=== PATIENT | male | born 1975 | race Caucasian/White ===

== ENCOUNTER 2022-02-16 04:56 | Inpatient (IN) | payer BC ==
[~2022-02-16] VITALS: Ht 160 cm; Wt 45.2 kg
[2022-02-16 05:43] LABS: BASOPHILS ABSOLUTE AUTO 0.04 K/mm3 (0.00-0.23); BASOPHILS PERCENT AUTO 0 % (0-2); EOSINOPHILS PERCENT AUTO 0 % (0-6); Hematocrit 41.5 % (37.0-53.0); Hemoglobin 13.5 g/dL (13.5-17.5); IMMATURE GRAN ABSOLUTE AUTO 0.04 K/mm3 (0.00-0.10); IMMATURE GRAN PERCENT AUTO 0 % (0-1); LYMPHOCYTES ABSOLUTE AUTO 0.45 K/mm3 (0.84-5.20); LYMPHOCYTES PERCENT AUTO 3 % (21-46); MONOCYTES ABSOLUTE AUTO 1.98 K/mm3 (0.16-1.47); MONOCYTES PERCENT AUTO 14 % (4-13); Mean Corpuscular HGB 30.4 pg (26.0-34.0); Mean Corpuscular HGB Conc 32.5 g/dL (31.5-36.5); Mean Corpuscular Volume 94 fL (80-100); Mean Platelet Volume 9.7 fL (9.1-12.4); NEUTROPHILS ABSOLUTE AUTO 11.92 K/mm3 (1.96-9.15); NEUTROPHILS PERCENT AUTO 83 % (41-73); Platelet Count 181 K/mm3 (150-400); RDW Coefficient Variation 12.8 % (11.7-14.2); RDW Standard Deviation 44.3 fL (35.1-46.3); Red Blood Cell Count 4.44 M/mm3 (4.30-5.90); White Blood Cell Count 14.43 K/mm3 (4.00-11.30)
[2022-02-16 05:50] LABS: Base Excess Venous 3.4 mmol/L; Bicarbonate Venous 26.3 mmol/L (24.0-30.0); PCO2 Venous 50.4 mmHg (38-42); pH Blood Venous 7.37 (7.34-7.37)
[2022-02-16 06:02] LABS: Albumin/Globulin Ratio 1.1 (0.8-1.8); Bilirubin, Total 0.7 mg/dL (0.1-1.0); Bun/Creatinine Ratio 19.1 (12.0-20.0); Calcium, Blood 9.1 mg/dL (8.5-10.1); Creatinine, Blood 1.31 mg/dL (0.60-1.20); Globulin, Blood 3.6 g/dL (2.2-4.0); Potassium, Blood 4.2 mmol/L (3.5-5.5); Total Protein, Blood 7.6 g/dL (6.4-8.2)
[2022-02-16 06:13] LABS: Influenza A, PCR NEGATIVE (NEGATIVE); Influenza B, PCR NEGATIVE (NEGATIVE); SARS-Cov-2 (COVID-19) PCR, MMC NEGATIVE (NEGATIVE)
[2022-02-16 06:27] LABS: Resp Syncytial Virus, PCR POSITIVE (NEGATIVE)
--- NOTE | 2022-02-16 11:16 | NUR ---
[facility]SCIA[facility] CONTACT CRITICAL LACTIC OF 5.3. DR. DIEHL NOTIFIED. NEW ORDERS FOR STAT RENAL PANEL.
[2022-02-16 11:44] LABS: Albumin, Blood 3.6 g/dL (3.4-5.0); Anion Gap 8 mmol/L (6-16); Blood Urea Nitrogen 24 mg/dL (8-24); Bun/Creatinine Ratio 19.8 (12.0-20.0); CO2, Blood 26 mmol/L (21-32); Calcium, Blood 8.2 mg/dL (8.5-10.1); Chloride, Blood 107 mmol/L (98-108); Creatinine, Blood 1.21 mg/dL (0.60-1.20); Glomerular Filtration Rate 74 (60-); Glucose, Blood 222 mg/dL (70-99); Phosphorus, Blood 1.4 mg/dL (2.5-4.9); Potassium, Blood 3.9 mmol/L (3.5-5.5); Sodium, Blood 141 mmol/L (136-145)
[2022-02-16] MEDS ORDERED: Prinivil10 MG PO (15:10)
--- NOTE | 2022-02-16 18:12 | NUR ---
pt arrived to room 339 via gurney from ED, report from Jacob RN, pt able to stand and ambulate to the bathroom indep and denies need for a walker, a/ox3, pleasant and coopertive with care, follows commands well, lungs are course t/o, states he's not as sob as when he came in, on r/a, hrr, distant sounds, no edema noted, ppp+2, cap refill <3 sec, piv to lac 20 G, btx4, abd round soft nontender, voids without diff, skin c/w/d, maew, rajni, call light in reach.
--- NOTE | 2022-02-16 18:38 | NUR ---
Dr. Shea notified of recent lactic of 2.8
[2022-02-17 06:39] LABS: BASOPHILS ABSOLUTE AUTO 0.03 K/mm3 (0.00-0.23); BASOPHILS PERCENT AUTO 0 % (0-2); EOSINOPHILS ABSOLUTE AUTO 0.01 K/mm3 (0.00-0.68); EOSINOPHILS PERCENT AUTO 0 % (0-6); Hematocrit 35.1 % (37.0-53.0); Hemoglobin 11.5 g/dL (13.5-17.5); IMMATURE GRAN ABSOLUTE AUTO 0.04 K/mm3 (0.00-0.10); IMMATURE GRAN PERCENT AUTO 0 % (0-1); LYMPHOCYTES ABSOLUTE AUTO 1.03 K/mm3 (0.84-5.20); LYMPHOCYTES PERCENT AUTO 8 % (21-46); MONOCYTES ABSOLUTE AUTO 0.73 K/mm3 (0.16-1.47); MONOCYTES PERCENT AUTO 5 % (4-13); Mean Corpuscular HGB 30.5 pg (26.0-34.0); Mean Corpuscular HGB Conc 32.8 g/dL (31.5-36.5); Mean Corpuscular Volume 93 fL (80-100); Mean Platelet Volume 9.4 fL (9.1-12.4); NEUTROPHILS ABSOLUTE AUTO 11.98 K/mm3 (1.96-9.15); NEUTROPHILS PERCENT AUTO 87 % (41-73); Platelet Count 146 K/mm3 (150-400); RDW Coefficient Variation 13.2 % (11.7-14.2); RDW Standard Deviation 45.3 fL (35.1-46.3); Red Blood Cell Count 3.77 M/mm3 (4.30-5.90); White Blood Cell Count 13.82 K/mm3 (4.00-11.30)
[2022-02-17 07:36] LABS: Albumin, Blood 3.2 g/dL (3.4-5.0); Anion Gap 4 mmol/L (6-16); Blood Urea Nitrogen 27 mg/dL (8-24); Bun/Creatinine Ratio 21.8 (12.0-20.0); CO2, Blood 27 mmol/L (21-32); Calcium, Blood 8.6 mg/dL (8.5-10.1); Chloride, Blood 106 mmol/L (98-108); Creatinine, Blood 1.24 mg/dL (0.60-1.20); Glomerular Filtration Rate 72 (60-); Glucose, Blood 151 mg/dL (70-99); Magnesium, Blood 1.8 mg/dL (1.6-2.4); Phosphorus, Blood 1.6 mg/dL (2.5-4.9); Potassium, Blood 4.4 mmol/L (3.5-5.5); Sodium, Blood 137 mmol/L (136-145)
--- NOTE | 2022-02-17 08:00 | NUR ---
Pt sitting up on side of the bed, a/ox3, pleasant and coopertive with care, follows commands well, denies pain, states he's feeling better, lungs are course, dim t/o, on r/a, no cough noted, hrr, no edema noted, ppp+2, cap refill <3 sec, vs stable, afebrile, iv site is clear and patent, btx4, abd flat soft nontender, voids without diff, skin c/w/d, maew, rajni, call light in reach.
--- NOTE | 2022-02-17 08:00 | NUR ---
pt sits on the side of the bed most of the day, states he's feeling better than when he came in, a/ox3, pleasant and coopertive with care, follows commands well, lungs are a bit course t/o, resp even and unlabored, sats are above 90%, hrr, no edmema noted, ppp+2, cap refill <3sec, vs stable, afebrile, iv site is clear and patent, btx4, abd flat soft nontender, voids without diff, skin c/w/d, maew, a bit weak and shakey when he gets up, sba to bathroom, rajni, call light in reach.
--- NOTE | 2022-02-17 08:39 | NUR ---
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 SLEPT WELL, VERY MINIMAL COUGHING. HE STILL SOUNDS VERY COARSE IN ALL RAZO. CALLS APPROPRIATELY FOR ASSISTANCE. NO COMPLAINTS OF PAIN OR DISCOMFORT.
--- NOTE | 2022-02-17 18:34 | NUR ---
pt has a temp this evening, tylenol administered, states he hurts all over lesa in his low back, cool wash rag given along with ice pack, will monitor temp, asked him to give pain meds a little time to work, call light in reach.
--- NOTE | 2022-02-18 05:10 | NUR ---
SHIFT SUMMARY: Pt A/Ox4 and call light appropriate. Pt had no acute changes and slept well in between care. He denied nausea, SOB, dizziness. He did have some c/o pain- recieved PRN tylenol. he is able to ambulate independant in his room. He remains on RA and his saturations remain >92%. Tele is on and no tele calls overnight.
--- NOTE | 2022-02-18 18:04 | NUR ---
SHIFT SUMMARY NO ACUTE CHANGES DURING SHIFT. PT ALERT AND ORIENTED, CALLS APPROPRIATELY. PT REMAINS ON RA, SPO2 > 92%. NO C/O PAIN. CONTINUED IV ABX. TMAX OF 100.4 TODAY. PT SBA IN ROOM. WILL CONTINUE TO MONITOR. CALL LIGHT WITHIN REACH.
--- NOTE | 2022-02-18 19:36 | NUR ---
AWAKE. DENIES PAIN AND LOSS OF FEELING. NOTE SOME WHEEZING AND DIMINISHED LUNG SOUNDS PER AUSCULTATION. TEMP 100.4, OTHERWISE VSS. UP AD SHANA. AFFECT CHEERFUL. CALL LIGHT IN REACH. ISOLATION PRECAUTIONS MAINTAINED. WILL CONTINUE TO MONITOR.
--- NOTE | 2022-02-19 06:07 | NUR ---
SENIOR NETWORK ENGINEER SUMMARY REMAINS ON ISOLATION PRECAUTIONS FOR RSV. UP AD SHANA IN ROOM. LUNG SOUNDS DIMINISHED, WITH SOME EXP WHEEZE PER AUSCULTATION. VS WNL, OTHER THAN ELEVATED TEMP. WAS 100.7 AT SHIFT COMMENCE, RECEIVED TYLENOL FOR FEVER AND BACK PAIN. MED EFFECTIVE, BROUGHT TEMP DOWN TO 100.1. HAS BEEN RESTING QUIETLY WITH FEW INTERRUPTIONS MOST OF THE SHIFT. AFFECT CHEERFUL WHEN INTERACTING WITH STAFF. CALL LIGHT IN REACH. MAURYON ISRAEL FOR COUGH. EFFECTIVE.
[2022-02-19 06:14] LABS: BASOPHILS ABSOLUTE AUTO 0.05 K/mm3 (0.00-0.23); BASOPHILS PERCENT AUTO 1 % (0-2); EOSINOPHILS ABSOLUTE AUTO 0.02 K/mm3 (0.00-0.68); EOSINOPHILS PERCENT AUTO 0 % (0-6); Hematocrit 33.4 % (37.0-53.0); IMMATURE GRAN ABSOLUTE AUTO 0.05 K/mm3 (0.00-0.10); IMMATURE GRAN PERCENT AUTO 1 % (0-1); LYMPHOCYTES ABSOLUTE AUTO 1.27 K/mm3 (0.84-5.20); LYMPHOCYTES PERCENT AUTO 13 % (21-46); MONOCYTES ABSOLUTE AUTO 1.06 K/mm3 (0.16-1.47); MONOCYTES PERCENT AUTO 11 % (4-13); Mean Corpuscular HGB 30.5 pg (26.0-34.0); Mean Corpuscular HGB Conc 32.9 g/dL (31.5-36.5); Mean Corpuscular Volume 93 fL (80-100); Mean Platelet Volume 10.6 fL (9.1-12.4); NEUTROPHILS ABSOLUTE AUTO 7.43 K/mm3 (1.96-9.15); NEUTROPHILS PERCENT AUTO 75 % (41-73); Platelet Count 168 K/mm3 (150-400); RDW Coefficient Variation 12.9 % (11.7-14.2); RDW Standard Deviation 44.2 fL (35.1-46.3); Red Blood Cell Count 3.61 M/mm3 (4.30-5.90); White Blood Cell Count 9.88 K/mm3 (4.00-11.30)
[2022-02-19 06:55] LABS: Albumin, Blood 2.8 g/dL (3.4-5.0); Anion Gap 3 mmol/L (6-16); Blood Urea Nitrogen 14 mg/dL (8-24); Bun/Creatinine Ratio 12.7 (12.0-20.0); CO2, Blood 31 mmol/L (21-32); Chloride, Blood 104 mmol/L (98-108); Glomerular Filtration Rate 83 (60-); Glucose, Blood 110 mg/dL (70-99); Magnesium, Blood 2.2 mg/dL (1.6-2.4); Potassium, Blood 4.8 mmol/L (3.5-5.5); Sodium, Blood 138 mmol/L (136-145)
[2022-02-19] MEDS ORDERED: Acetaminophen650 M1 PO (11:37)
[2022-02-19] MEDS ORDERED: BENZ100A PO (11:38)
[2022-02-19] MEDS ORDERED: AMOCLA875 PO (11:38)
--- NOTE | 2022-02-19 12:32 | NUR ---
DISCHARGE SUMMARY PT AxOx4. PLEASANT AND COOPERATIVE WITH CARE. PT IS DISCHARGING HOME TODAY WITH HIS MOTHER. MOTHER IN ROOM THIS AM. PT DENIES PAIN OR SOB. PT HAS HACKY CONSISTED COUGH. MEDICATED PER EMAR WITH REPORTED RELIEF. PT AND HIS MOTHER WERE GIVEN EXTENSIVE PATIENT EDUCATION ON RSV, AND PRECAUTIONS. OTHER DISCHARGE INFO GIVEN INCLUDING DC MEDICATION LIST AND FOLLOW UP APPOINTMENT WITH PCP. PT WAS INSTRUCTED TO SEE OUTPATIENT DR TO DISCUSS LENGTH OF NEED TO BE OFF WORK. PT VERBALIZES UNDERSTANDING AND DENIES FURTHER QUESTIONS. PT WAS SAFELY ESCORTED OUT VIA WC WITH MOTHER AND INSTRUMENTATION TECH.
== END 2022-02-19 13:16 | disposition home or self-care (01) | DRG 871 ==
LOC: ER 04:56 → ERHOLD 04:57 → MEDS 04:57
PROVIDERS: Student in an Organized Health Care Education/Training Program; ADMIT Family Medicine
DX: A41.89 Other specified sepsis (principal); J12.1 Respiratory syncytial virus pneumonia; J96.01 Acute respiratory failure with hypoxia; J45.901 Unspecified asthma with (acute) exacerbation; N17.9 Acute kidney failure, unspecified; E87.20 Acidosis, unspecified; Z20.822 Contact with and (suspected) exposure to COVID-19; I10 Essential (primary) hypertension
CPT/HCPCS: 0241U; 36415; 51798; 71045; 76770; 80053; 80069; 82803; 83605; 83735; 83880; 84145; 84484; 85025; 87040; 93005; 93010; 94640; 94644; 94664; 96365; 96367; 96372; 96375; 96376; 99285-25; A9270; G0378; J0456; J0696; J1644; J1885; J7030; J7050; J7060; J7120

== ENCOUNTER 2022-05-01 06:29 | Day surgery (SDC) | payer BC ==
[~2022-05-01] VITALS: Ht 160 cm; Wt 46.1 kg
[~2022-05-01 06:29] MED LIST: AMOCLA875 PO; Acetaminophen650 M1 PO; BENZ100A PO; Prinivil10 MG PO
--- NOTE | 2022-05-01 07:42 | NUR ---
Ambulatory in Day Surgery. History, Chart, Medications and Allergies reviewed before start of procedure. Patient confirms NPO status and agrees with scheduled surgery. Patient States Post-Procedure ride home has been arranged WITH FREDRICK CABRERA.
--- NOTE | 2022-05-01 08:15 | NUR ---
05/01/22 0815 Sharon Myrick HISTORY, CHART, MEDICATIONS AND ALLERGIES REVIEWED BEFORE START OF PROCEDURE. PATIENT CONFIRMS NPO STATUS AND AGREES WITH SCHEDULED PROCEDURE. 3-LEAD EKG REVIEWED WITH PHYSICIAN PRIOR TO START OF PROCEDURE. MONITOR INTACT WITH CONTINUOUS PULSE OXIMETRY,CAPNOGRAPHY, 3-LEAD EKG, INTERMITTENT BP. SUPPLEMENTAL O2 TO BE TITRATED THROUGHOUT PROCEDURE TO MAINTAIN O2 SATURATION ABOVE 90%. PATIENT DETERMINED TO BE ASA APPROPRIATE FOR PROPOFOL SEDATION PRIOR TO START OF PROCEDURE BY DR. IVY.
--- NOTE | 2022-05-01 09:14 | NUR ---
DISCHARGE NOTE PT A&OX4, VSS, NO NAUSEA, ABLE TO DRESS INDEPENDENTLY. Discharge instructions reviewed with patient. Patient verbalizes understanding. Copy given to patient to take home. Discharged via wheelchair to private car for ride home.
== END 2022-05-01 09:17 | disposition home or self-care (01) ==
LOC: ORSCMMR 06:29 → ORD 08:00 → ORSCMMR 09:17
PROVIDERS: Internal Medicine Gastroenterology
PROC: 0DJD8ZZ Inspection of Lower Intestinal Tract, Via Natural or Artificial Opening Endoscopic (ICD-10-PCS; principal; 2022-05-01 08:00)
DX: Z12.11 Encounter for screening for malignant neoplasm of colon (principal); I10 Essential (primary) hypertension; J45.909 Unspecified asthma, uncomplicated; Z79.899 Other long term (current) drug therapy
CPT/HCPCS: J2704; J7120